=== PATIENT | male | born 1985 | race Asian ===

== ENCOUNTER 2019-05-18 16:02 | Outpatient (CLI) | payer OTHER ==
--- NOTE | 2019-05-18 16:39 | XRAY Report ---
Reason: STRAIN OF MUSCLE,FASCIA AND TENDON AT NECK LEVEL, Procedure Date: 05/18/2019 Accession Number: [id number] / [id number] Procedure: XR - Shoulder 3 View RT CPT Code: FULL RESULT: EXAM: RIGHT SHOULDER RADIOGRAPHY EXAM DATE: 05/18/2019 04:24 PM. CLINICAL HISTORY: Cervical spine pain radiating down the right shoulder for 3 months. No known trauma. Suspected muscle/tendon/fascia strain COMPARISON: None. TECHNIQUE: 3 views. FINDINGS: Bones: Normal. No fracture or bone lesion. Joints: The glenohumeral and acromioclavicular joints are normal. Soft tissues: The visualized hemithorax is unremarkable. No soft tissue swelling. IMPRESSION: Normal shoulder radiography. RADIA
--- NOTE | 2019-05-18 16:45 | XRAY Report ---
Reason: STRAIN OF MUSCLE,FASCIA AND TENDON AT NECK LEVEL, Procedure Date: 05/18/2019 Accession Number: [id number] / [id number] Procedure: XR - Cervical Spine 2 View CPT Code: FULL RESULT: EXAM: CERVICAL SPINE RADIOGRAPHY EXAM DATE: 05/18/2019 04:24 PM. CLINICAL HISTORY: C-spine pain radiating down the right shoulder for 3 months. No known trauma. COMPARISONS: None. TECHNIQUE: 3 views. FINDINGS: Alignment: There is subtle, almost imperceptible, levoconvex scoliosis of the cervical spine which is felt to possibly be positional, correlate to possible muscle spasm. No listhesis is detected. Bones: The cervical vertebral bodies and posterior elements are well visualized from the skull base through C7-T1. No fractures or bone lesions. Disks: There is minimal marginal osteophytosis and minimal loss of joint space at the C5-C6 level. Facets: No degenerative disease. Soft Tissues: Normal. No prevertebral soft tissue swelling. The visualized lung apices are clear. IMPRESSION: Minimal single-level degenerative changes as described. Question potential positional finding as described above. RADIA
== END 2019-05-18 16:03 | disposition home or self-care (01) ==
LOC: DI 16:02
PROVIDERS: ATTEND Family Medicine
DX: S16.1XXA Strain of muscle, fascia and tendon at neck level, initial encounter (principal); M25.78 Osteophyte, vertebrae
CPT/HCPCS: 72040

== ENCOUNTER 2019-07-06 08:00 | Outpatient (CLI) | payer OTHER ==
[2019-07-06 18:58] LABS: BASOPHILS # (AUTO) 0.1 10^3/uL (0.0-0.1); EOSINOPHILS # (AUTO) 0.2 10^3/uL (0.0-0.7); EOSINOPHILS % (AUTO) 3.1 %; HGB - HEMOGLOBIN 16.2 g/dL (14.0-18.0); LYMPHOCYTES # (AUTO) 1.8 10^3/uL (1.5-3.5); LYMPHOCYTES % (AUTO) 34.7 %; MEAN CORPUSCULAR HEMOGLOBIN 30.1 pg (27.0-31.0); MEAN CORPUSCULAR VOLUME 91.3 fL (80.0-94.0); MEAN PLATELET VOLUME 9.8 fL (7.4-11.4); MONOCYTES # (AUTO) 0.3 10^3/uL (0.0-1.0); MONOCYTES % (AUTO) 6.3 %; NEUTROPHILS # (AUTO) 2.9 10^3/uL (1.5-6.6); NEUTROPHILS % (AUTO) 54.7 %; PLT - PLATELET COUNT 247 10^3/uL (130-450); RED BLOOD COUNT 5.38 10^6/uL (4.70-6.10); RED CELL DISTRIBUTION WIDTH 12.3 % (12.0-15.0); WHITE BLOOD COUNT 5.2 x10^3/uL (4.8-10.8)
[2019-07-06 19:21] LABS: ALBUMIN 4.4 g/dL (3.2-5.5); ALBUMIN/GLOBULIN RATIO 1.3 (1.0-2.2); ALKALINE PHOSPHATASE 47 IU/L (42-121); ALT ALANINE AMINOTRANSFERASE 29 IU/L (10-60); AST ASPARTATE AMINOTRANSFERASE 39 IU/L (10-42); BILIRUBIN,TOTAL 0.8 mg/dL (0.2-1.0); BUN - BLOOD UREA NITROGEN 16 mg/dL (6-20); CALCIUM 9.2 mg/dL (8.5-10.3); CARBON DIOXIDE - CO2 25 mmol/L (21-32); CHLORIDE 104 mmol/L (101-111); CHOL/HDL RATIO 4.5 (<5.0); CHOLESTEROL 230 mg/dL; CREATININE 1.1 mg/dL (0.6-1.2); GFR - MDRD 77 (>89); GLUCOSE 94 mg/dL (70-100); HDL CHOLESTEROL 51 mg/dL; LDL CHOLESTEROL,CALCULATED 161 mg/dL; LDL/HDL RATIO 3.2 (<3.6); SODIUM 139 mmol/L (135-145); TOTAL PROTEIN 7.8 g/dL (6.7-8.2); VLDL CHOLESTEROL 18 mg/dL
[2019-07-06 20:00] LABS: HB2 TOTAL 17.3 g/dL; HEMOGLOBIN A1C 0.73 g/dL
== END 2019-07-06 23:59 | disposition home or self-care (01) ==
LOC: LAB.WCP 08:00
PROVIDERS: ATTEND Physician Assistant
DX: Z00.00 Encounter for general adult medical examination without abnormal findings (principal)
CPT/HCPCS: 36415; 80053; 80061; 83036; 83721; 85025

== ENCOUNTER 2020-09-04 08:00 | Outpatient (CLI) | payer OTHER ==
[2020-09-04 18:26] LABS: BASOPHILS % (AUTO) 0.4 %; EOSINOPHILS % (AUTO) 0.5 %; HGB - HEMOGLOBIN 15.5 g/dL (14.0-18.0); LYMPHOCYTES # (AUTO) 1.4 10^3/uL (1.5-3.5); LYMPHOCYTES % (AUTO) 25.1 %; MEAN CORPUSCULAR HEMOGLOBIN 29.5 pg (27.0-31.0); MEAN CORPUSCULAR HGB CONC 32.8 g/dL (32.0-36.0); MEAN CORPUSCULAR VOLUME 89.9 fL (80.0-94.0); MEAN PLATELET VOLUME 9.8 fL (7.4-11.4); MONOCYTES # (AUTO) 0.3 10^3/uL (0.0-1.0); MONOCYTES % (AUTO) 4.9 %; NEUTROPHILS # (AUTO) 3.9 10^3/uL (1.5-6.6); NEUTROPHILS % (AUTO) 68.7 %; PLT - PLATELET COUNT 274 10^3/uL (130-450); RED BLOOD COUNT 5.25 10^6/uL (4.70-6.10); RED CELL DISTRIBUTION WIDTH 12.2 % (12.0-15.0); WHITE BLOOD COUNT 5.7 x10^3/uL (4.8-10.8)
[2020-09-04 19:33] LABS: ALBUMIN 4.5 g/dL (3.2-5.5); ALBUMIN/GLOBULIN RATIO 1.3 (1.0-2.2); ALKALINE PHOSPHATASE 61 IU/L (42-121); ALT ALANINE AMINOTRANSFERASE 27 IU/L (10-60); AST ASPARTATE AMINOTRANSFERASE 25 IU/L (10-42); BILIRUBIN,TOTAL 0.7 mg/dL (0.2-1.0); BUN - BLOOD UREA NITROGEN 17 mg/dL (6-20); CALCIUM 9.3 mg/dL (8.5-10.3); CARBON DIOXIDE - CO2 25 mmol/L (21-32); CHLORIDE 103 mmol/L (101-111); CHOL/HDL RATIO 5.4 (<5.0); CHOLESTEROL 223 mg/dL; CREATININE 1.1 mg/dL (0.6-1.2); GLUCOSE 93 mg/dL (70-100); HDL CHOLESTEROL 41 mg/dL; LDL CHOLESTEROL,CALCULATED 163 mg/dL; SODIUM 136 mmol/L (135-145); TOTAL PROTEIN 7.9 g/dL (6.7-8.2); VLDL CHOLESTEROL 19 mg/dL
== END 2020-09-04 23:59 ==
LOC: LAB.WCP 08:00
PROVIDERS: ATTEND Physician Assistant
DX: Z00.00 Encounter for general adult medical examination without abnormal findings (principal); F41.9 Anxiety disorder, unspecified; F32.9 Major depressive disorder, single episode, unspecified
CPT/HCPCS: 36415; 80053; 80061; 83721; 84443; 85025

== ENCOUNTER 2020-10-31 08:45 | Outpatient (CLI) | payer OTHER ==
--- NOTE | 2020-10-31 13:32 | CARDIAC PROCEDURE NOTE ---
DATE OF SERVICE: 10/31/2020 Physician: Helen Rodgers MD, [facility] INDICATION: Chest pain. CARDIAC RISK FACTORS: Male gender, elevated cholesterol. RESTING HEART RATE: 67. PEAK HEART RATE: 156 (84% predicted maximum heart rate for age). RESTING BLOOD PRESSURE: 146/91. PEAK BLOOD PRESSURE: 194/74. DESCRIPTION OF PROCEDURE: After signing informed consent, the patient underwent a Trip-protocol treadmill stress test with nuclear myocardial perfusion imaging. The patient exercised for 10 minutes and 54 seconds. He achieved a peak heart rate of 156 (84% predicted maximum heart rate for age) and 13.3 METs. The patient had no chest pain during exercise or in recovery. The patient had moderate shortness of breath at peak, and rated his perceived exertion at 14/20 at peak. Oxygen saturation was 94%-99% on room air throughout the test. RESTING EKG: Normal sinus rhythm, right IVCD, LVH with strain pattern. EKG AT PEAK: New vertical axis develops, unchanged ST and T waves in leads III and aVF and new T-wave flattening develops in V4 through V6. SUMMARY 1. Abnormal resting EKG suggesting left ventricular hypertrophy (LVH). 2. Good exercise tolerance. 3. Nonspecific changes occur by EKG criteria to suggest ischemia during exercise, since baseline EKG has abnormal ST-T segments of strain pattern. 4. Nuclear images were reported separately and showed: no convincing areas of ischemia or infarction (only an attenuation defect was present). IMPRESSION: Normal stress test. RECOMMENDATIONS: Consider an Echocardiogram to evaluate for LVH. cc: Regine Siddiqi PA-C TD: 10/31/2020 12:46 MTDSonia
--- NOTE | 2020-11-01 10:11 | Nuclear Medicine Report ---
PROCEDURE: Rest and exercise myocardial perfusion SPECT with gated imaging and ejection fraction INDICATIONS: CHEST PAIN RADIOPHARMACEUTICAL: 7.2 mCi Tc-99m Myoview IV at rest and 23.2 mCi Tc-99m Myoview IV at peak exerci se. [id number] was performed. TECHNIQUE: Radiopharmaceutical was injected at peak stress test, and also at rest. SPECT images wer e obtained. SPECT myocardial perfusion images were displayed in short axis, horizontal long axis, an d vertical long axis views. Gated images were reviewed using Auto[employer] software. COMPARISON: None available. FINDINGS: Raw data: There is good myocardial labeling by radiotracer. No significant motion artifacts. Lung- to-heart ratio is 0.36 (normal is less than 0.38 for tetrafosmin tracer). Left ventricle function: Gated images demonstrate normal left ventricle wall thickening. No segment al wall motion abnormality. No transient ischemic dilation; TID is 1.06 (normal less than 1.3). The left ventricle resting end-diastolic volume is normal. Left ventricle stress ejection fraction is 5 8%; normal values are above 45%. Myocardial perfusion: There is [id number] size, moderately severe, reversible perfusion defec t in the anterior septum and anterior lateral wall, which is resolved on prone imaging, most likely c aused by attenuation artifact. There is otherwise normal distribution of activity in the left and rig ht ventricular myocardium. No definitive fixed or reversible perfusion defects to suggest myocardial infarction or ischemia. IMPRESSION: 1. Probably normal myocardial perfusion images. No convincing evidence for myocardial ischemia or inf arct. 2. Decreased activity in the anterior septum and anterolateral wall on supine images has resolved on prone imaging, consistent with attenuation artifact. 3. Normal left ventricular volume and systolic function. 4. Please correlate with stress EKG report. PQRS ATTESTATIONS: Measure 322 - Is this imaging test primarily performed on a low-risk surgery patient for preoperative evaluation within 30 days preceding their low-risk non-cardiac surgery? Low-risk surgery is defined as cardiac or myocardial infarction less than 1%, including (but not limited to) endoscopic pr ocedures, superficial procedures, cataract surgery, and excisional breast surgery: Answer: No Measure 323 - Is this imaging test performed primarily for the monitoring of an asymptomatic patient who had percutaneous coronary intervention on the visit date or within 2 years of the visit date? An swer: No Measure 324 - Is this imaging test performed primarily for the initial detection and risk assessment on an asymptomatic, low coronary heart disease patient? Low CHD risk definition = clinicians should consider the maximum number of available patient factors used to estimate risk based on [place] (A TP III criteria), typically age, gender, diabetes, smoking status, and use of blood pressure medicati on, and integrate age appropriate estimates for missing elements, such as LDL or standard blood press ure. Answer: No Reviewed by: Emili Anders MD on 11/01/2020 10:09 AM PST Approved by: Emili Anders MD on 11/01/2020 10:09 AM PST Station ID: [id number]
== END 2020-10-31 08:46 | disposition home or self-care (01) ==
LOC: DI 08:45
PROVIDERS: ATTEND Physician Assistant
DX: R07.9 Chest pain, unspecified (principal); R94.31 Abnormal electrocardiogram [ECG] [EKG]
CPT/HCPCS: 78452; 93017; A9500

== ENCOUNTER 2021-01-08 09:17 | Outpatient (CLI) | payer OTHER | END 2021-01-08 09:18 | disposition home or self-care (01) | LOC: DI 09:17 | PROVIDERS: ATTEND Physician Assistant | DX: R07.9 Chest pain, unspecified (principal) | CPT/HCPCS: 93306 ==

== ENCOUNTER → 2021-09-16 | Outpatient (CLI) | payer OTHER ==
[2021-09-16 13:38] LABS: BASOPHILS % (AUTO) 0.5 %; EOSINOPHILS # (AUTO) 0.1 10^3/uL (0.0-0.7); EOSINOPHILS % (AUTO) 1.6 %; HCT - HEMATOCRIT 44.2 % (42.0-52.0); HGB - HEMOGLOBIN 14.7 g/dL (14.0-18.0); LYMPHOCYTES # (AUTO) 1.6 10^3/uL (1.5-3.5); LYMPHOCYTES % (AUTO) 37.1 %; MEAN CORPUSCULAR HEMOGLOBIN 30.1 pg (27.0-31.0); MEAN CORPUSCULAR HGB CONC 33.3 g/dL (32.0-36.0); MEAN CORPUSCULAR VOLUME 90.6 fL (80.0-94.0); MEAN PLATELET VOLUME 10.1 fL (7.4-11.4); MONOCYTES # (AUTO) 0.2 10^3/uL (0.0-1.0); MONOCYTES % (AUTO) 5.4 %; NEUTROPHILS # (AUTO) 2.4 10^3/uL (1.5-6.6); NEUTROPHILS % (AUTO) 55.2 %; PLT - PLATELET COUNT 283 10^3/uL (130-450); RED BLOOD COUNT 4.88 10^6/uL (4.70-6.10); RED CELL DISTRIBUTION WIDTH 12.2 % (12.0-15.0); WHITE BLOOD COUNT 4.3 x10^3/uL (4.8-10.8)
[2021-09-16 14:01] LABS: THYROID STIMULATING HORMONE 1.02 uIU/mL (0.34-5.60)
[2021-09-16 14:11] LABS: ALBUMIN 4.5 g/dL (3.2-5.5); ALBUMIN/GLOBULIN RATIO 1.3 (1.0-2.2); ALKALINE PHOSPHATASE 54 IU/L (42-121); ALT ALANINE AMINOTRANSFERASE 30 IU/L (10-60); AST ASPARTATE AMINOTRANSFERASE 37 IU/L (10-42); BILIRUBIN,TOTAL 0.9 mg/dL (0.2-1.0); BUN - BLOOD UREA NITROGEN 15 mg/dL (6-20); CALCIUM 9.4 mg/dL (8.5-10.3); CARBON DIOXIDE - CO2 28 mmol/L (21-32); CHLORIDE 103 mmol/L (101-111); CHOL/HDL RATIO 5.3 (<5.0); CHOLESTEROL 224 mg/dL; GFR - MDRD 85 (>89); GLUCOSE 108 mg/dL (70-100); HDL CHOLESTEROL 42 mg/dL; LDL CHOLESTEROL,CALCULATED 168 mg/dL; SODIUM 140 mmol/L (135-145); TRIGLYCERIDES 70 mg/dL; VLDL CHOLESTEROL 14 mg/dL
== END ==
LOC: LAB.WCP 10:02
PROVIDERS: ATTEND Nurse Practitioner
DX: E78.5 Hyperlipidemia, unspecified (principal); R53.83 Other fatigue
CPT/HCPCS: 36415; 80053; 80061; 83721; 84443; 85025